=== PATIENT | male | born 1990 | race Caucasian/White ===

== ENCOUNTER 2016-09-21 23:39 | Emergency (ER) | payer SELFPAY ==
[2016-09-22] MEDS ORDERED: cefTRIAXone\\ROCEPHIN 500 MG VIAL ONE (00:18)
[2016-09-22] MEDS ORDERED: HYDROcodone/Acetaminophen 5/325 mg Tablet ONE (00:18)
[2016-09-22] MEDS ORDERED: Azithromycin 250 MG TAB ONE (00:18)
[2016-09-22 00:47] LABS: Bilirubin Negative (Negative); Blood, Urine Negative (Negative); Clarity Slightly Cloudy (Clear); Glucose, Urine (Dipstick) Negative (Negative); Leukocyte Small (Negative); Nitrite Negative (Negative); Protein, Urine (Dipstick) Negative (Neg-Trace); Urobilinogen 0.2 mg/dL (0.2-1.0)
[2016-09-22 00:53] LABS: Bacteria/HPF None Seen HPF (None Seen); RBC/HPF 0-3 HPF (0-3); Squamous Epithelial None Seen HPF (0-3)
== END 2016-09-22 01:00 | disposition home or self-care (01) ==
LOC: BURERS 23:39
DX: N45.1 Epididymitis (principal)
CPT/HCPCS: 81003; 81015; 87086; 87491; 87591; 96372; J0696